=== PATIENT | female | born 1950 | race Caucasian/White ===

== ENCOUNTER 2023-11-03 14:17 | Outpatient (CLI) | payer OTHER, SELFPAY ==
--- NOTE | 2023-11-03 15:00 | CRLHL7_ITS ---
For Patients: As a result of the Century Cures Act, medical imaging exams and procedure reports are released immediately into your electronic medical record. You may view this report before your referring provider. If you have questions, please contact your health care provider. INDICATION: Right upper quadrant pain and bloating. TECHNIQUE: Conventional two-dimensional grayscale ultrasound of the right upper quadrant. COMPARISON: MRCP of 07/03/2023 FINDINGS: A 1.9 cm gallstone is noted. No gallbladder wall thickening or pericholecystic fluid is demonstrated. The patient is reportedly not tender over the gallbladder. No biliary ductal dilation is evident. The common bile duct measures 7 mm. The liver is normal in size, shape and echogenicity. Doppler assessment of the portal vein suggests reversed flow in the portal vein. The pancreas is within normal limits. The right kidney is unremarkable. The visualized portion of the abdominal aorta and inferior vena cava are negative. IMPRESSION: 1. 1.9 cm gallstone. 2. Doppler assessment of the portal vein suggests reversed flow despite the liver appear normal. Question artifact. Follow up liver Doppler study suggested. Dictated by Jasen Kraft MD @ 11/04/2023 8:38:57 AM (Electronically Signed)
== END 2023-11-03 14:18 | disposition home or self-care (01) ==
PROVIDERS: PCP Physician Assistant Medical; Visit Provider Surgery
DX: R10.11 Right upper quadrant pain (principal); K80.20 Calculus of gallbladder without cholecystitis without obstruction
CPT/HCPCS: 76705

== ENCOUNTER 2023-11-13 14:30 | Outpatient (CLI) | payer OTHER, SELFPAY ==
--- NOTE | 2023-11-13 15:00 | US_ITS ---
HEPATIC ULTRASOUND DOPPLER STUDY COMPARISON: ULTRASOUND 11/03/2023, MRI 07/03/2023, CT 06/17/2023 INDICATION: RIGHT UPPER QUADRANT PAIN, EVALUATE FOR ABNORMAL BLOOD FLOW TECHNIQUE: GRAYSCALE, COLOR DOPPLER AND POWER DOPPLER EVALUATION OF THE ABDOMEN PERFORMED IN THE RIGHT UPPER QUADRANT. FINDINGS: THE LIVER ECHOTEXTURE IS MILDLY INCREASED. NO INTRAHEPATIC MASS. THIS IS CONSISTENT WITH MILD FATTY INFILTRATION/CHRONIC LIVER DISEASE. NO ASCITES. STONE IS PRESENT WITHIN THE GALLBLADDER LUMEN, BEFORE, MEASURING 2 CM. THE GALLBLADDER WALL MEASURES 2 MM. THE COMMON BILE DUCT MEASURES 7 MM. THE RIGHT KIDNEY MEASURES 9.4 CM. THE AORTA MEASURES 2.1 CM. THE PANCREAS IS NOT VISUALIZED. ANTEGRADE FLOW IS PRESENT WITHIN THE SPLENIC VEIN, PORTAL VEINS AND HEPATIC VEINS. NO THROMBUS. NORMAL WAVEFORM WITHIN THE HEPATIC ARTERY WITH A VELOCITY OF 61.3 CENTIMETERS/SECOND. EXTRARENAL PELVIS REGARDING THE RIGHT KIDNEY IS INCIDENTALLY NOTED, BEFORE. IMPRESSION: MILD CHRONIC LIVER DISEASE. NO INTRAHEPATIC MASS OR ASCITES. CHRONIC CHOLELITHIASIS. NORMAL DIRECTIONAL FLOW WITHIN THE SPLENIC VEIN, PORTAL VEINS AND HEPATIC VEINS.
== END 2023-11-13 14:31 | disposition home or self-care (01) ==
LOC: US 14:32
PROVIDERS: PCP Physician Assistant Medical; Visit Provider Surgery
DX: R10.11 Right upper quadrant pain (principal); K76.9 Liver disease, unspecified; K80.20 Calculus of gallbladder without cholecystitis without obstruction
CPT/HCPCS: 76705; 93975

== ENCOUNTER 2023-11-30 06:02 | Day surgery (SDC) | payer OTHER, SELFPAY ==
[2023-11-30] VITALS (11 sets, daily range): BP systolic 125–152; BP diastolic 64–92; PULSE 52–73; RESP 14–16; TEMP 36.2–36.6; O2SAT 87–99; BMI 25.5
[2023-11-30] MEDS: LACTATED RINGERS 1000 ML 1,000 ML 100 ML IV (06:45)
[2023-11-30] MEDS: SODIUM CHLORIDE 0.9 % (FLUSH) 10 ML SYRINGE IVF (06:45)
--- NOTE | 2023-11-30 07:28 | PM.GSPRC ---
Operative Note Date of procedure: 11/30/23 Pre-op diagnosis: 1. Chronic cholecystitis. Post-op diagnosis: Same Type of Procedure: 1. Laparoscopic cholecystectomy. Indications: 72-year-old female With chronic pain on chronic Irving was seen in clinic for evaluation of right upper quadrant abdominal pain. Patient had a complex history with multiple back surgeries with anterior and posterior approach. She developed an infection after her first back surgery and underwent removal of hardware and then placement of new hardware. During that hospital stay patient developed PE and was treated with anticoagulation. 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 Patient's right upper quadrant pain was intermittent and frequently present at a low level. It is worse with eating greasy food. Patient also complained of a lot of bloating. In April of 2023 patient was seen in the emergency room at the outside hospital with small-bowel obstruction. She underwent exploratory laparoscopy with lysis of adhesions. During her workup of small-bowel obstruction, CT scan showed distended gallbladder with dilated pancreatic and common bile duct. Patient then underwent MRCP as outpatient in June of 2023 and that showed mild dilatation of pancreatic, intrahepatic and common bile duct with no pancreatic mass. There were no filling defects in the common bile duct to suggest choledocholithiasis. Patient had a colonoscopy several months ago helped with advanced sessile serrated polyp removed from the sigmoid colon. Patient's ejection fraction continued to improve and her last EF was 61% with normal left ventricular size and normal global systolic RV function. On clinical exam patient had tenderness to palpation in the right upper quadrant. There was a well-healed lower midline laparotomy scar. Patient had negative Sr sign. Given patient's clinical history and her symptoms, chronic cholecystitis was suspected, and laparoscopic cholecystectomy was recommended. the procedure was discussed in detail. The risks associated procedure including infection, bleeding, injury to the common bile duct, extensive lysis of adhesions, and possible need for additional procedures were all discussed with the patient, and she agreed to proceed. Procedure Description: After discussing the risks and benefits of the procedure, the patient signed informed consent.? The operative site was marked and the patient was brought to the operating room and placed on the operating table in supine position.? Care was taken to pad the patient's pressure points.?? The patient was then Intubated by anesthesia.?? The operative site was then prepped and draped in the usual sterile fashion.? A time-out was then performed. A 5-mm laparoscopy port was placed in the left upper quadrant guided by a 5-mm laparoscope placed into a translucent trochar.~ Passage through the layers of the abdominal wall was visualized with the laparoscope.~ A pneumoperitoneum was established. A 0-degree 5-mm laparoscope was advanced into the abdomen. The abdomen was briefly surveyed, and no adhesions were noted. A 10-mm port were placed infraumbilically and two more 5 mm ports were placed on the right under direct visualization by laparoscope. The camera was then changed to 10 mm 30-degree scope and placed into the abdomen through the 10 mm port. The left upper quadrant port entrance was examined and no injury to intra-abdominal organs was identified. Small bowel was adherent to the left mid abdomen with dense adhesions. This was just one loop small bowel. It did not appear to be dilated. The gallbladder was identified, the fundus grasped and retracted cephalad. Omental adhesions were taken down off the gallbladder with hook cautery. The infundibulum was grasped and retracted laterally, exposing the peritoneum overlying the triangle of Calot. This was then divided and exposed in a blunt fashion and with hook cautery. Common bile duct was not identified but care was taken not to injure it. The cystic duct was clearly identified and bluntly dissected circumferentially. Cystic artery was identified and tissues around it were dissected off. The cystic artery and the cystic duct were clearly going into the gallbladder. The cystic artery was anterior medial to the cystic duct. The cystic artery was clipped first with two 5 mm clips on the patient's side and a single clip on the specimen side and divided with scissors. The cystic duct was then doubly ligated with surgical clips on the patient's side and singly clipped on the gallbladder side and divided. The gallbladder was dissected from the liver bed in retrograde fashion using hookcautery. A prominent vein was located in the posterior gallbladder fossa. This vein was going into the gallbladder. This was clipped with a single clip on the patient's side and divided with hook cautery and the specimen side. The gallbladder was placed into an Endo-Catch bag and removed through the infraumbilical incision. Surgical site was examined for bleeding. No bleeding was seen in the surgical field. The fascia of the infraumbilical incision was then closed with A [id number] 0-0 vicryl under direct visualization. this closure was then examined intra-abdominally, and no intra-abdominal organs were incarcerated in the closure. Pneumoperitoneum was completely reduced after viewing removal of the trocars under direct vision. The skin was then closed with 4-0 monocryl and steristrips were applied. Instrument, sponge, and needle counts were correct at closure and at the conclusion of the case. The patient was transferred to PACU in stable condition. Findings: A loop of small bowel adherent to the left mid abdomen With dense adhesions. No other adhesions were noted to the abdominal wall. The gallbladder was floppy with no acute inflammation. Anesthesia: GETA Surgeon: Marylou Gardner MD Estimated blood loss (mL): 5 Specimen: Gallbladder Condition: stable Disposition: PACU
[2023-11-30] MEDS: CEFAZOLIN 2 GM INJ IVP (07:40)
[2023-11-30] MEDS: BUPIVACAINE 0.25% 30 ML INJECTION (07:50)
--- NOTE | 2023-11-30 08:06 | W.ANESCHARGE ---
Anesthesia Charges Start Date/Time Anesthesia Start Date: 11/30/23 Anesthesia Start Time: 07:29 Stop Date/Time Anesthesia Stop Date: 11/30/23 Anesthesia Stop Time: 08:33 Summary Extremes of Age - Over 70 or under 1: INSIGHTS ANALYST
[2023-11-30] MEDS: ONDANSETRON 2 MG/ML inj 4 MG IVP (08:50)
[2023-11-30] MEDS: fentaNYL 100 MCG/2 ML inj 50 MCG IVP (08:56)
[2023-11-30] MEDS: LACTATED RINGERS 1000 ML 1,000 ML 35 ML IV (09:04)
--- NOTE | 2023-11-30 10:05 | SUR.PHASEII ---
Pt up to the restroom, voided. Pt tolerated water, yogurt.
[2023-11-30] MEDS: HYDROCODONE-ACETAMIN 5-325 MG 1 TAB PO (11:02)
--- NOTE | 2023-11-30 11:19 | W.ANESCHARGE ---
Anesthesia Charges Start Date/Time Anesthesia Start Date: 11/30/23 Anesthesia Start Time: 07:29 Stop Date/Time Anesthesia Stop Date: 11/30/23 Anesthesia Stop Time: 08:33 Summary Extremes of Age - Over 70 or under 1: MDA
== END 2023-11-30 11:15 | disposition home or self-care (01) ==
PROVIDERS: PCP Physician Assistant Medical; Visit Provider Surgery
PROC: 0FT44ZZ Resection of Gallbladder, Percutaneous Endoscopic Approach (ICD-10-PCS; CPT 47562; principal; 2023-11-30 07:30)
DX: K81.1 Chronic cholecystitis (principal)
CPT/HCPCS: 47562; 00790; 88304; 99100; A9270; J0665; J0690; J1100; J2405; J2704; J2710; J3010; J7120